=== PATIENT | female | born 1960 | race Caucasian/White ===

== ENCOUNTER 2017-04-30 09:08 | Emergency (ER) | payer BC ==
[2017-04-30 09:50] VITALS: BP 123/91
[2017-04-30] MEDS ORDERED: Lidocaine/Epineph/Tetraca SOL* (LET solution) 4 ML BTL TOPICAL ONE (10:53)
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
== END 2017-04-30 11:20 | disposition home or self-care (01) ==
LOC: UCCORT 09:08
DX: S01.511D Laceration without foreign body of lip, subsequent encounter (principal); W19.XXXD Unspecified fall, subsequent encounter